=== PATIENT | male | born 1980 | race Caucasian/White ===

== ENCOUNTER 2023-07-11 08:42 | Emergency (ER) | payer OTHER ==
[~2023-07-11] VITALS: Ht 160 cm; Wt 70.3 kg
[2023-07-11] MEDS ORDERED: ATORVASTATIN CA10 MG PO (08:57)
== END 2023-07-11 09:22 | disposition home or self-care (01) ==
LOC: ER 08:43
DX: M79.661 Pain in right lower leg (principal)